=== PATIENT | male | born 1955 | race Caucasian/White ===

== ENCOUNTER 2024-12-27 10:13 | Emergency (ER) | payer MEDICARE, OTHER ==
[~2024-12-27] VITALS: Ht 177.8 cm; Wt 97.3 kg
[2024-12-27] MEDS: ADENOSINE 6 MG/2 ML INJECTION IV STA (10:55)
[2024-12-27] MEDS ORDERED: PANT40TA29 PO (11:22)
[2024-12-27] MEDS ORDERED: CLOP75TA2 PO (11:22)
[2024-12-27] MEDS ORDERED: ALBU8.5H INH (11:22)
[2024-12-27] MEDS ORDERED: VENL225T PO (11:22)
[2024-12-27] MEDS ORDERED: LISI10TA22 PO (11:22)
[2024-12-27] MEDS ORDERED: METO50TA7 PO (11:22)
[2024-12-27] MEDS ORDERED: LEVA45AE INH (11:22)
[2024-12-27] MEDS ORDERED: HYDR-3363 PO (11:22)
[2024-12-27] MEDS ORDERED: TAMS1CAP17 PO (11:22)
[2024-12-27] MEDS ORDERED: CETI-24 PO (11:22)
[2024-12-27 11:39] LABS: CALCIUM LEVEL 9.1 MG/DL (8.3-10.6); CARBON DIOXIDE LEVEL 24.0 MMOL/L (20-31); CHLORIDE LEVEL 107.0 MMOL/L (98-107); CREATININE FOR GFR 1.18 MG/DL (0.70-1.30); GLOMERULAR FILTRATION RATE 67.2 (>49); MAGNESIUM LEVEL 1.8 MG/DL (1.8-2.4); POTASSIUM SERUM 4.4 MMOL/L (3.5-5.1); SODIUM LEVEL 140.0 MMOL/L (136-145)
[2024-12-27] MEDS: NS 500 ML IV ONE (12:14)
[2024-12-27 14:03] VITALS: BP 175/87; TEMP 97.6; O2SAT 99
== END 2024-12-27 14:07 | disposition home or self-care (01) ==
LOC: M ED 10:13
DX: I47.10 Supraventricular tachycardia, unspecified (principal); R00.1 Bradycardia, unspecified; I45.10 Unspecified right bundle-branch block; I25.2 Old myocardial infarction; J44.9 Chronic obstructive pulmonary disease, unspecified; I10 Essential (primary) hypertension; F43.10 Post-traumatic stress disorder, unspecified; E11.9 Type 2 diabetes mellitus without complications; F17.200 Nicotine dependence, unspecified, uncomplicated; Z79.01 Long term (current) use of anticoagulants; Z79.52 Long term (current) use of systemic steroids; Z79.899 Other long term (current) drug therapy
CPT/HCPCS: 36415; 80048; 83735; 84443; 93005; 93041; 94760; 96361; 96374; 99285; J0153